=== PATIENT | male | born 1965 | race Caucasian/White ===

== ENCOUNTER 2021-01-23 13:02 | Emergency (ER) | payer BC, SELFPAY ==
[2021-01-23 13:03] VITALS: BP 159/115; PULSE 66; RESP 18; TEMP 36.5; O2SAT 98; BMI 36.0
--- NOTE | 2021-01-23 13:13 | EKG12_ITS ---
Test Reason : CP Blood Pressure : / mmHG Vent. Rate : 081 BPM Atrial Rate : 081 BPM P-R Int : 136 ms QRS Dur : 106 ms QT Int : 370 ms P-R-T Axes : 014 043 024 degrees QTc Int : 429 ms Normal sinus rhythm Normal ECG Confirmed by FRANKLIN BYRD, CHARLES ([id number]), book editor DARIN GOVEA ([id number]) on 01/26/2021 10:05:55 AM Referred By: YADI/MEGAN Confirmed By:CHARLES REID MD
--- NOTE | 2021-01-23 13:21 | RAD_ITS ---
STUDY: X-RAY CHEST REASON FOR EXAM: Male, 55 years old. CP TECHNIQUE: Single AP portable view of the chest. COMPARISON: None. FINDINGS: EKG electrodes are seen. The lungs are clear and expanded. There is no demonstrated pleural abnormality. Normal size heart. Normal mediastinum and ward. Normal visualized pulmonary arteries. Normal visualized aortic arch and descending thoracic aorta. There are diffuse degenerative changes of the visualized thoracic spine. Normal visualized ribs, clavicles, and shoulders. There is no demonstrated abnormality of the visualized soft tissue structures of the upper abdomen. RAD/Chest 1 View (Portable) IMPRESSION: Normal x-ray examination of the chest. Electronically Signed: Dayton Painter MD at 13:47 EST , Service support ,
[2021-01-23 13:32] LABS: Absolute Lymphocyte Count 1.62 X10^3/uL (0.83-4.51); Absolute Neutrophil Count 8.7 X10^3/uL (2.0-7.7); Basophil# 0.06 X10^3/uL; Basophil% 0.5 % (0-1); Eosinophil# 0.17 X10^3/uL; Eosinophils% 1.5 % (0-5); Hemoglobin 15.8 g/dL (13.0-16.5); Lymphocyte # 1.62 X10^3/ul (0.83-4.51); Lymphocyte % 14.3 % (19-41); Mean Corp Hgb Conc 34.3 g/dL (32-36); Mean Corpuscular Hgb 29.1 pg (27.0-32.0); Mean Corpuscular Volume 84.7 fL (80-94); Monocyte# 0.71 X10^3/uL; Monocyte% 6.3 % (0-10); NRBC Flagged by Analyzer 0 % (0-5); Neutrophil # 8.74 X10^3/uL (2.7-7.7); Neutrophil % 77.1 % (47-70); Platelet Count 253 K/mm3 (150-450); RBC Distribution Width CV 13.8 % (11.6-14.6); RBC Distribution Width SD 42.8 fl (35.1-43.9); Red Blood Count 5.43 M/mm3 (4.6-6.2); White Blood Count 11.3 K/mm3 (4.4-11.0)
[2021-01-23 13:47] LABS: ALB/GLOB Ratio 0.9 RATIO (0.9-2.4); AST(SGOT) 38 U/L (15-37); Alanine Aminotransfer ALT/SGPT 60 U/L (16-61); Albumin, Serum 3.6 g/dL (3.2-5.0); Alkaline Phosphatase 79 U/L (45-117); Anion Gap 8 (5-15); BUN 14 mg/dL (7-18); BUN/Creat Ratio 11.7 RATIO (10-20); Calcium,Total 9.1 mg/dL (8.5-10.1); Chloride 105 mmol/L (98-107); EST Glomerular Filtration Rate 67 mL/min (>60); Est Glom Filt Rate - Afr Amer 81 mL/min (>60); Estimated Creatinine Clearance 65.03 ml/min; Globulin 3.8 g/dL (2.2-4.2); Glucose 215 mg/dL (74-106); Potassium 4.2 mmol/L (3.5-5.1); Protein, Total 7.4 g/dL (6.4-8.2); Sodium Level 137 mmol/L (136-145)
[2021-01-23 13:50] LABS: AST(SGOT) 39 U/L (15-37); Alanine Aminotransfer ALT/SGPT 59 U/L (16-61); Albumin, Serum 3.6 g/dL (3.2-5.0); Alkaline Phosphatase 78 U/L (45-117); Bilirubin, Direct 0.13 mg/dL (0.00-0.30); Globulin 3.8 g/dL (2.2-4.2); Protein, Total 7.4 g/dL (6.4-8.2)
--- NOTE | 2021-01-23 13:52 | EDS_ITS ---
HPI History of Present Illness Chief Complaint: Chest Pain Informant: patient Onset/Context/Timing Onset: Today Activity at onset: gradual Timing: Continuous Quality: Positive for Tightness Location: Substernal, Right Chest and Left Chest Worsened By: Nothing Relieved By: Nothing Associated Symptoms: Positive for Nausea; Negative for Vomiting, Diaphoresis, Dyspnea, Cough, Fever, Lightheadedness, Acid Reflux and Palpitations Narrative Narrative: Patient presents with lower chest pain that began today. Patient states he woke up with the pain today. Patient states it has been constant. Patient states it is over the lower chest and epigastric area. Patient states it wraps around into his back. Patient describes as a thick, hard cramping that goes around his lower chest and upper abdomen. Patient states nothing makes it worse and nothing makes it better. Patient admits to nausea but denies any vomiting. Patient states he has a history of recurrent pancreatitis and this feels similar to that. Prior Similar Symptoms: Yes and - (With pancreatitis episodes) CVD Risk Factors: Positive for Hypertension; Negative for Diabetes, Hypercholesterolemia, Family History 1' </=55 and Smoking PE Risk Factors: Positive for Recent Travel/Surgery; Negative for Recent Immobilization, Prior DVT or PE, Cancer and OCP + Smoking + >/=35 PFSH PFSH Medical History (Updated 01/23/21 @ 15:[address] Morales Kendrick DO) Diverticulitis Hypertension Pancreatitis Home Medications amlodipine 10 mg PO DAILY 01/23/21 [History Last Taken Unknown] ondansetron 4 mg PO Q8H PRN PRN #10 tab 01/23/21 [Rx Last Taken Unknown] Allergy/AdvReac Type Severity Reaction Status Date / Time atropine AdvReac Other Verified 01/23/21 13:09 Surgical History Hx of appendectomy Hx of cholecystectomy Hx of eye surgery Social History (Updated 01/23/21 @ 13:[address] Morales Kendrick DO) Smoking Status: Current every day smoker tobacco type: cigarettes ROS ROS ED Constitutional Constitutional ED: Denies chills or fever(s) Eyes Eyes: Denies blurry vision or change in vision ENT ENT ED: Denies rhinorrhea or sore throat Cardiovascular Cardiovascular: Reports chest pain; Denies palpitations Respiratory/Chest Respiratory/Chest: Denies cough or dyspnea Gastrointestinal Gastrointestinal: Reports abdominal pain and nausea; Denies vomiting Genitourinary Genitourinary ED: Denies dysuria or hematuria Musculoskeletal Musculoskeletal: Reports back pain; Denies neck pain Integumentary Reports rash; Denies abscess Neurologic Neurologic: Denies headache(s) or weakness Allergic/Immunologic Allergic/Immunologic ED: Denies mouth swelling or urticaria EXAM Physical Exam Const Vital Signs: 01/23/21 13:03 01/23/21 14:18 01/23/21 14:20 Temperature 97.7 F L Temperature Source Oral Pulse Rate 66 77 Respiratory Rate 18 Respiratory Pattern Normal Blood Pressure 159/115 H 141/107 H Blood Pressure Mean 129 118 Pulse Ox 98 Positive well nourished, well developed and obese General Appearance ED: well developed Nutritional Appearance: obese HEENT normocephalic and atraumatic Eyes PERRL and EOMs intact bilaterally Neck supple and no JVD Chest Wall palpation of chest normal Resp normal respiratory effort and clear to auscultation bilaterally Effort and Inspection: Negative for respiratory distress Cardio regular rate, regular rhythm and no murmurs GI normal to inspection, nondistended, normoactive bowel sounds and soft to palpation GI Narrative: There is tenderness over the upper abdomen. There is no rebound or guarding noted. There are no masses palpated. Extremity normal to inspection General Extremety ED: Negative for edema or tenderness General Extremity: Negative for edema Neuro oriented x3, CN's II-XII intact bilaterally and no sensory deficits noted Sensorium / Orientation: awake and alert Motor Exam: strength 5/5 throughout Psych mental status grossly normal Heart Score History: Slightly/Non-Suspicious ECG: Normal Age: >45 - <65 years Risk Factors: 1 or 2 Risk Factors Troponin: </= Normal Limit Score: 2 MDM MDM MDM Narrative Medical decision making narrative: Patient was given a dose of Zofran, Toradol, and Dilaudid initially. EKG was obtained. On my interpretation, it showed a normal sinus rhythm with a rate of 81. OR interval, QRS interval, and QTc intervals were all normal. [place] was normal. There are no acute ST or T wave changes. Portable 1 view chest x-ray was obtained. On my interpretation, lung johnson are clear. There is normal cardiac silhouette. Bony thorax is normal. There is no acute process noted. Radiologist also interpreted the x-ray and agrees. CBC shows a slight leukocytosis of 11.3. Comprehensive metabolic profile was essentially within normal limits. Lipase was elevated at 1157. High-sensitivity troponin was normal. Patient was advised of his findings. Patient states his pain is improved. Patient was given a repeat dose of Dilaudid. Patient states he has prescriptions at home for Dilaudid for his pancreatitis pain. Patient was given a prescription for Zofran. Patient was instructed to eat a bland diet. Patient was instructed to follow-up with his primary care physician in 3 to 5 days. Patient understood and was agreeable with the plan. All questions were answered. Lab Data Attestation: I reviewed the patient's lab results. Labs: Laboratory Results - last 24 hr 01/23/21 01/23/21 01/23/21 13:25 13:25 13:25 WBC 11.3 H RBC 5.43 Hgb 15.8 Hct 46.0 MCV 84.7 MCH 29.1 MCHC 34.3 RDW Std Deviation 42.8 RDW Coeff of Jayla 13.8 Plt Count 253 MPV 9.0 Immature Gran % (Auto) 0.300 Neut % (Auto) 77.1 H Lymph % (Auto) 14.3 L Reeves % (Auto) 6.3 Eos % (Auto) 1.5 Baso % (Auto) 0.5 Absolute Neuts (auto) 8.7 H Absolute Lymphs (auto) 1.62 Nucleated RBC % 0 Sodium 137 Potassium 4.2 Chloride 105 Carbon Dioxide 24.0 Anion Gap 8 BUN 14 Creatinine 1.20 Estim Creat Clear Calc 65.03 Est GFR (MDRD) Af Amer 81 Est GFR (MDRD) Non-Af 67 BUN/Creatinine Ratio 11.7 Glucose 215 H Calcium 9.1 Total Bilirubin 0.50 0.40 Direct Bilirubin 0.13 AST 38 H 39 H ALT 60 59 Alkaline Phosphatase 79 78 Troponin I High Sens Total Protein 7.4 7.4 Albumin 3.6 3.6 Globulin 3.8 3.8 Albumin/Globulin Ratio 0.9 Lipase 01/23/21 01/23/21 13:25 13:25 WBC RBC Hgb Hct MCV MCH MCHC RDW Std Deviation RDW Coeff of Jayla Plt Count MPV Immature Gran % (Auto) Neut % (Auto) Lymph % (Auto) Reeves % (Auto) Eos % (Auto) Baso % (Auto) Absolute Neuts (auto) Absolute Lymphs (auto) Nucleated RBC % Sodium Potassium Chloride Carbon Dioxide Anion Gap BUN Creatinine Estim Creat Clear Calc Est GFR (MDRD) Af Amer Est GFR (MDRD) Non-Af BUN/Creatinine Ratio Glucose Calcium Total Bilirubin Direct Bilirubin AST ALT Alkaline Phosphatase Troponin I High Sens 5 Total Protein Albumin Globulin Albumin/Globulin Ratio Lipase 1157 H Radiography Chest X-Ray - ED: 1 View, Read by ED Physician, Read by Radiologist and Normal Diagnostic Testing: Clinical Impression(s) from Imaging Studies Chest X-Ray 01/23/21 13:21 IMPRESSION: Normal x-ray examination of the chest. Electronically Signed: Dayton Painter MD at 13:47 EST , Service support , EKG Initial EKG: Attestation: I personally reviewed and interpreted this EKG as follows: Interpretation: Sinus Rhythm (81) and No Acute Injury Pattern Discharge Plan Triage Chief Complaint: Chest Pain ED Provider: Morales Kendrick Dx/Rx/DC Orders Clinical Impression: Pancreatitis Instructions: ED Pancreatitis Prescriptions: New ondansetron [ondansetron] 4 MG tablet 4 mg PO Q8H PRN PRN (Reason: Nausea) Qty: 10 RF: 0 No Action amlodipine 10 mg tablet 10 mg PO DAILY RF: 0 Referrals: TIMMY BROWN [Other] - 5-7 Days Disposition Disposition: Home, Self Care
[2021-01-23 13:55] LABS: Lipase 1157 U/L (73-393)
[2021-01-23] MEDS: Ondansetron 4 MG/2 ML Vial IV (14:08)
[2021-01-23] MEDS: Ketorolac 30 MG/ML Syringe IV (14:10)
[2021-01-23] MEDS: HYDROmorphone 1 MG/ML Syringe 0.5 MG IV ×2 (14:13→15:40)
[2021-01-23 14:20] VITALS: BP 141/107; PULSE 77
[2021-01-23 15:08] LABS: Troponin-I HS 5 pg/mL (3.0-78.0)
[2021-01-23 16:08] VITALS: BP 126/77; PULSE 62; RESP 15; O2SAT 97
== END 2021-01-23 16:09 | disposition home or self-care (01) ==
PROVIDERS: Emergency Provider Emergency Medicine
DX: K85.90 Acute pancreatitis without necrosis or infection, unspecified (principal); E66.9 Obesity, unspecified; I10 Essential (primary) hypertension; F17.210 Nicotine dependence, cigarettes, uncomplicated; Z79.899 Other long term (current) drug therapy; Z87.19 Personal history of other diseases of the digestive system
CPT/HCPCS: 71045; 80053; 80076; 83690; 84484; 85025; 93005; 96374; 96375; 96376; 99285; A4216; J2405